=== PATIENT | female | born 1980 | race Caucasian/White ===

== ENCOUNTER 2017-12-29 16:48 | Emergency (ER) | payer SELFPAY ==
[~2017-12-29] VITALS: Ht 154.9 cm; Wt 79.4 kg
[2017-12-29 16:55] VITALS: BP 149/93
[2017-12-29] MEDS ORDERED: KETOROLAC 60 MG/2 ML VIAL. IM ONE ×2 (17:17→17:30)
[2017-12-29] MEDS ORDERED: IBUP800T19 PO (17:35)
[2017-12-29] MEDS ORDERED: SULF1TAB24 PO (17:35)
[2017-12-29] MEDS ORDERED: CYCL5TAB PO (17:35)
--- NOTE | 2017-12-29 17:35 | PHYS DOC ---
Past History Past Medical History: Anxiety, Other Past Surgical History: Appendectomy, Smoking: Cigarettes Alcohol Use: None Drug Use: None Adult General Chief Complaint Chief Complaint: SKIN PROBLEM HPI HPI Patient is a 37 year old female who presents with complaining of painful lesion in right subaxillary area. Patient states she had a lesion in that area that started 2 weeks ago and was drained spontaneously with improvement of the condition but for the last 1 week it started to getting larger and tender and painful again without drainage of pus. Patient denies fever and chills. Patient had history of MRSA several years ago. Patient complaining of thoracic back pain since yesterday without injury and focal neuro deficit and believes her pain is related to anxiety. Review of Systems Review of Systems Constitutional: Denies fever or chills [] Eyes: Denies change in visual acuity, redness, or eye pain [] HENT: Denies nasal congestion or sore throat [] Respiratory: Denies cough or shortness of breath [] Cardiovascular: No additional information not addressed in HPI [] GI: Denies abdominal pain, nausea, vomiting, bloody stools or diarrhea [] : Denies dysuria or hematuria [] Musculoskeletal: Reports back pain Integument: Denies rash, reports skin lesions [] Neurologic: Denies headache, focal weakness or sensory changes [] Endocrine: Denies polyuria or polydipsia [] All other systems were reviewed and found to be within normal limits, except as documented in this note. Current Medications Current Medications Current Medications Medications (Trade) Dose Ordered Sig/[facility] Start Time Stop Time Status Last Admin Dose Admin Ketorolac Tromethamine (Toradol Im) 60 mg STK-MED ONCE 12/29/17 17:17 12/29/17 17:18 DC Physical Exam Physical Exam Constitutional: Well developed, well nourished, mild distress, non-toxic appearance. [] HENT: Normocephalic, atraumatic. Eyes: PERRLA, EOMI, conjunctiva normal, no discharge. [] Neck: Normal range of motion, no tenderness, supple, no stridor. [] Cardiovascular:Heart rate regular rhythm, no murmur [] Lungs & Thorax: Bilateral breath sounds clear to auscultation [] Skin: Warm, dry, 2 x 2 centimeters area of erythema and tenderness without fluctuation in right lower axillary area Back: No midline tenderness, no muscle spasm, no CVA tenderness. [] Extremities: No tenderness, no cyanosis, no clubbing, ROM intact, no edema. [] Neurologic: Alert and oriented X 3, normal motor function, normal sensory function, no focal deficits noted. [] Psychologic: Affec anxious, judgement normal, mood normal. [] Current Patient Data Vital Signs Vital Signs Date Time Temp Pulse Resp B/P (MAP) Pulse Ox O2 Delivery O2 Flow Rate FiO2 12/29/17 16:55 98.4 98 20 98 Room Air EKG EKG [] Radiology/Procedures Radiology/Procedures [] Course & Med Decision Making Course & Med Decision Making Evaluation of patient in ER showed 37-year-old female patient with complaining of painful area subaxillary area as a cellulitis. Patient also complaining of back pain because of anxiety. Plan to give prescription for antibiotic and pain medication and instructed to return to ER if not getting better. Dragon Disclaimer Dragon Disclaimer This electronic medical record was generated, in whole or in part, using a voice recognition dictation system. Departure Departure: Impression: Primary Impression: Cellulitis of axilla, right Additional Impressions: Thoracic myofascial strain Tobacco abuse Tobacco abuse counseling Disposition: HOME, SELF-CARE (at 1733) Condition: IMPROVED Referrals: [facility] (PCP) Patient Instructions: Cellulitis, Smoking Cessation, Tips For Success, Thoracic Strain Additional Instructions: Apply ice pack on your back Follow-up with your primary care physician in 3-5 days Return to ER if not getting better Scripts Cyclobenzaprine Hcl (CYCLOBENZAPRINE HCL) 5 Mg Tablet 1 TAB PO TID for pain, #30 TAB Prov: CESAR AGUILAR MD 12/29/17 Ibuprofen (IBUPROFEN) 800 Mg Tablet 1 TAB PO TID for pain, #30 TAB Prov: CESAR AGUILAR MD 12/29/17 Sulfamethoxazole/Trimethoprim (BACTRIM DS TABLET) 1 Each Tablet 1 TAB PO BID for infection, #14 TAB Prov: CESAR AGUILAR MD 12/29/17 Problem Qualifiers CESAR AGUILAR MD Dec 29, 2017 17:35
== END 2017-12-29 17:40 | disposition home or self-care (01) ==
LOC: ER 16:48
DX: L03.111 Cellulitis of right axilla (principal); S29.012A Strain of muscle and tendon of back wall of thorax, initial encounter; F17.210 Nicotine dependence, cigarettes, uncomplicated; F41.9 Anxiety disorder, unspecified; Z71.6 Tobacco abuse counseling; X58.XXXA Exposure to other specified factors, initial encounter; Y93.89 Activity, other specified; Y92.89 Other specified places as the place of occurrence of the external cause; Y99.8 Other external cause status
CPT/HCPCS: 96372; 99283; J1885

== ENCOUNTER 2018-01-04 07:07 | Emergency (ER) | payer SELFPAY ==
[~2018-01-04 07:07] MED LIST: CYCL5TAB PO; IBUP800T19 PO; SULF1TAB24 PO
[2018-01-04 07:18] VITALS: BP 140/89
[2018-01-04] MEDS ORDERED: HYDR-971 PO (07:52)
--- NOTE | 2018-01-04 07:52 | PHYS DOC ---
Past History Past Medical History: No Pertinent History Past Surgical History: Appendectomy Smoking: Cigarettes Additional Smoking Information: 1 PPD Alcohol Use: None Drug Use: None Adult General Chief Complaint Chief Complaint: SKIN PROBLEM HPI HPI Patient is a 38 year old female who presents with painful area on right axillary for more than one week that did not get better with antibiotic treatment given 5 days ago in her previous emergency room visit after she did want to have medical treatment for her problem. Patient denies drainage of pus but complaining of increasing pain without fever and chills. Patient is up-to- date with tetanus immunization. Review of Systems Review of Systems Constitutional: Denies fever or chills [] Eyes: Denies change in visual acuity, redness, or eye pain [] HENT: Denies nasal congestion or sore throat [] Respiratory: Denies cough or shortness of breath [] Cardiovascular: No additional information not addressed in HPI [] GI: Denies abdominal pain, nausea, vomiting, bloody stools or diarrhea [] : Denies dysuria or hematuria [] Musculoskeletal: Denies back pain or joint pain [] Integument: Denies rash, reports skin lesions [] Neurologic: Denies headache, focal weakness or sensory changes [] Endocrine: Denies polyuria or polydipsia [] All other systems were reviewed and found to be within normal limits, except as documented in this note. Current Medications Current Medications Current Medications Medications (Trade) Dose Ordered Sig/[facility] Start Time Stop Time Status Last Admin Dose Admin Acetaminophen/ Hydrocodone Bitart (Lortab 5/325) 1 tab 1X ONCE 01/04/18 07:55 01/04/18 07:56 Lidocaine HCl 20 ml 1X ONCE 01/04/18 07:55 01/04/18 07:56 Allergies Allergies Allergies Coded Allergies Type Severity Reaction Last Updated Verified No Known Drug Allergies 12/29/17 No Physical Exam Physical Exam Constitutional: Well developed, well nourished, mild distress, non-toxic appearance. [] HENT: Normocephalic, atraumatic Eyes: PERRLA, EOMI, conjunctiva normal, no discharge. [] Neck: Normal range of motion, no tenderness, supple, no stridor. [] Cardiovascular:Heart rate regular rhythm, no murmur [] Lungs & Thorax: Bilateral breath sounds clear to auscultation [] Skin: Warm, dry, 2 x 2 centimeters area of erythema and edema and tenderness in right lower axillary area Back: No tenderness, no CVA tenderness. [] Extremities: No tenderness, no cyanosis, no clubbing, ROM intact, no edema. [] Neurologic: Alert and oriented X 3, normal motor function, normal sensory function, no focal deficits noted. [] Psychologic: Affect normal, judgement normal, mood normal. [] Current Patient Data Vital Signs Vital Signs Date Time Temp Pulse Resp B/P (MAP) Pulse Ox O2 Delivery O2 Flow Rate FiO2 01/04/18 07:18 98.1 99 16 98 Room Air EKG EKG [] Radiology/Procedures Radiology/Procedures [] Course & Med Decision Making Course & Med Decision Making discharge: I've spoken with the patient and/or caregivers. I've explained the patient's condition, diagnosis and treatment plan based on information available to me at this time. I've answered the patient's and/or caregivers questions and addressed any concerns. The patient and/or caregivers have a good understanding the patient's diagnosis, condition and treatment plan as can be expected at this point. Vital signs have been stabilized. The patient's condition is stable for discharge from the emergency department. The patient will pursue further outpatient evaluation with her primary care provider or other designated consulting physician as outlined in the discharge instructions. Patient and/or caregivers are agreeable to this plan of care and follow-up instructions have been explained in detail. The patient and/or caregivers have received these instructions in written format and expressed understanding of these discharge instructions. The patient and her caregivers are aware that if any significant change in condition or worsening of symptoms should prompt him to immediately return to this of the closest emergency department. If an emergent department is not readily available I would encourage him to call 911. Vinny Disclaimer Dragon Disclaimer This electronic medical record was generated, in whole or in part, using a voice recognition dictation system. Incision and Drainage Indication: Right axillary area abscess Procedure: The patient was positioned appropriately and the skin over the incision site was prepped with normal saline. Local anesthesia was given with 3 mL of 1% lidocaine. An incision was then made over the right axillary abscess and moderate amount of pussy material was expressed. Loculations were removed with Q-tip. The drainage cavity was then irrigated with normal saline and packed with iodoform gauze. The patients tetanus status is up-to-date The patient tolerated the procedure well . Complications: None. Departure Departure: Impression: Primary Impression: Abscess of right axilla Additional Impressions: Tobacco abuse Tobacco abuse counseling Disposition: HOME, SELF-CARE (At 0750) Condition: IMPROVED Referrals: PCP,NO (PCP) Patient Instructions: Abscess, Care After, Community-Associated MRSA, Smoking Cessation, Tips For Success Additional Instructions: Remove the packing in 2 days Change dressing twice a day and as needed Continue home antibiotic Follow-up with your primary care physician in 3-5 days Return to ER if not getting better Scripts Hydrocodone Bit/Acetaminophen (NORCO 5-325 TABLET) 1 Each Tablet 1 TAB PO PRN Q6HRS PRN for PAIN, #14 TAB 0 Refills Prov: CESAR AGUILAR MD 01/04/18 Problem Qualifiers CESAR AGUILAR MD Jan 04, 2018 07:52
[2018-01-04] MEDS ORDERED: HYDROcodone/APAP 5/325MG 1 TAB TABLET PO ONE (07:55)
[2018-01-04] MEDS ORDERED: LIDOCAINE 1% Multi-Dose 20 ML VIAL. IJ ONE (07:55)
== END 2018-01-04 08:02 | disposition home or self-care (01) ==
LOC: ER 07:07
DX: L02.411 Cutaneous abscess of right axilla (principal); F17.210 Nicotine dependence, cigarettes, uncomplicated; Z71.6 Tobacco abuse counseling
CPT/HCPCS: 10060; 99283